=== PATIENT | female | born 1990 | race Caucasian/White ===

== ENCOUNTER 2016-05-17 21:18 | Emergency (ER) | payer SELFPAY ==
[2016-05-17 22:27] LABS: PLATELET COUNT 326 x10^3mcL (130-400)
[2016-05-17 22:29] LABS: BASOPHIL % 0 % (0-2)
[2016-05-17 22:30] LABS: CALCIUM 9.3 mg/dL (8.5-10.1); CARBON DIOXIDE 25.4 mmol/L (21-32); CHLORIDE SERUM 103 mmol/L (98-107); CREATININE SERUM 0.7 mg/dL (0.6-1.0); GFR1 > 60 mL/min; GLUCOSE SERUM 100 mg/dL (74-106); POTASSIUM SERUM 3.4 mmol/L (3.5-5.1); SODIUM SERUM 140 mmol/L (136-145)
[2016-05-17 22:34] LABS: ALBUMIN 4.4 g/dL (3.4-5.0); ALKALINE PHOSPHATASE 58 U/L (46-116); ALT/SGPT 19 U/L (14-59); AMYLASE 96 U/L (25-115); AST/SGOT 15 U/L (15-37); LIPASE 142 IU/L (73-393)
[2016-05-17 22:36] LABS: TOTAL PROTEIN, SERUM 8.6 g/dL (6.4-8.2)
[2016-05-18 00:24] VITALS: BP 117/72
== END 2016-05-18 00:24 | disposition home or self-care (01) ==
LOC: ED 21:18
PROVIDERS: Emergency Medicine
DX: R11.10 Vomiting, unspecified (principal); R10.9 Unspecified abdominal pain; Z90.49 Acquired absence of other specified parts of digestive tract
CPT/HCPCS: J2405; J2765; J3010; J7030